=== PATIENT | female | born 1960 | race Caucasian/White ===

== ENCOUNTER 2017-06-28 17:52 | Inpatient (IN) | payer MEDICAID ==
--- NOTE | 2017-06-28 18:33 | EDPHY ---
H & P Time Seen by Provider: 06/28/17 17:59 HPI/ROS: CHIEF COMPLAINT: Right knee pain HISTORY OF PRESENT ILLNESS: Patient is a 56-year-old female who presents emergency department with right knee pain. Patient states that she is currently in a custodial because in 2013 she developed an infection in her right knee that went systemic. She required orthopedic drainage. Patient states that 2 weeks ago she fell landing on her right knee. She initially did not have any discomfort. However over the past few days she has had increased right knee pain and swelling. She denies fevers or chills. No nausea vomiting. No other complaints. REVIEW OF SYSTEMS: My complete review of systems is negative except as mentioned in the HPI. Past Medical/Surgical History: Includes aortic stenosis, CHF, hypertension, chronic low back pain, chronic knee pain, depression, narcotic dependency, JOAQUIN, diabetes, peripheral neuropathy , reported bacteremia, reported septic joint Past surgical history: Includes bypass and aortic valve replacement Social history: The patient is currently custodial resident Smoking Status: Current every day smoker Physical Exam: Vitals noted. Febrile. GENERAL: Well-appearing, in no acute distress, alert. HEENT: Eyes normal to inspection, normal pharynx, no signs of dehydration. NECK: No thyromegaly, no lymphadenopathy, supple. RESPIRATORY: Clear to auscultation bilaterally, no rales, rhonchi or wheezing. CVS: Regular rate and rhythm, no rubs, murmurs, or gallops. ABDOMEN: Soft, nontender, nondistended, no organomegaly. BACK: Normal to inspection, no CVA tenderness. SKIN: Normal color, no rash, warm, dry. No pallor. EXTREMITIES: No pedal edema, no calf tenderness, no Homans sign or cords. Patient has mild swelling of her right knee. There is no warmth. No streaking up her leg. No pain with passive range of motion. Mild patellar tenderness palpation. NEURO/PSYCH: Alert and oriented x3, normal mood and affect, normal motor sensory exam. Constitutional: Initial Vital Signs Temperature (C) 38.4 C H 06/28/17 17:58 Heart Rate 110 H 06/28/17 17:58 Respiratory Rate 16 06/28/17 17:58 Blood Pressure 99/76 L 06/28/17 17:58 O2 Sat (%) 92 06/28/17 17:58 O2 Delivery Mode Room Air Allergies/Adverse Reactions: adhesive tape Allergy (Unknown, Verified 01/03/16 04:51) Itching nafcillin Allergy (Verified 08/27/16 08:14) vancomycin Allergy (Verified 08/27/16 08:14) Home Medications: Medication Instructions Recorded Citalopram Hydrobromide 40 mg PO DAILY 07/07/12 [Citalopram HBr 40 MG] Metoprolol Tartrate [Lopressor 25 12.5 mg PO BID 07/07/12 mg (*)] busPIRone [Buspar (*)] 5 mg PO BID 07/07/12 Aspirin [Aspirin 325 mg (*)] 325 mg PO DAILY 02/27/14 Cyclobenzaprine [Flexeril 10 MG 10 mg PO TID 02/27/14 (*)] Pregabalin [Lyrica 75mg (*)] 75 mg PO TID 05/29/14 Ferrous Sulfate [Ferrous Sulf 325 325 mg PO BID #20 tab 08/15/14 MG (*)] Atorvastatin Calcium [Lipitor 10 10 mg PO DAILY 11/21/14 mg (*)] oxyCODONE CR [Oxycontin] 40 mg PO BID 03/01/15 oxyCODONE CR [Oxycontin] 80 mg PO BID 03/01/15 oxyCODONE IR [Oxycodone Ir (RX)] 30 mg PO 03/01/15 Temazepam 03/03/15 Amox Tr/Potassium Clavulanate 875 mg PO BID #14 tab 01/03/16 [Amox Tr-K Clv 875-125 mg] Clobetasol 0.05% [Temovate Topical 50 ml TP BID #1 btl 01/03/16 Solution] Medical Decision Making - Diagnostics Imaging Results: Imaging Impressions Knee X-Ray 06/28/17 18:35 Impression: Moderate to severe tricompartmental osteoarthritis of the right knee. Nothing acute radiographically. ED Course/Re-evaluation: In the emergency department I discussed possible etiologies with the patient. Answered all her questions. IV was placed. Laboratory studies were obtained. The IV patient's laboratory studies. CBC is pending. Lactic acid is elevated at 2.9. Creatinine is elevated 1.5. Patient's sodium is low 133. The patient consented to a knee aspiration. Please refer the procedure note. Patient tolerated the procedure well. White count is elevated 16,000. Lactic acid elevated at 2.9. The C-reactive protein is elevated at 22. Patient was noted to have 771 white cells in her knee aspiration. She had 96, 000 red cells. Crystals are pending. I do not have a culture result. I reviewed antibiotic recommendations for septic arthritis. The recommendation is Rocephin and vancomycin. Patient has an allergy to vancomycin. I subsequently spoke with Dr. Canales regarding admission and antibiotic choice. The patient will be given Rocephin 2 g IV per the recommendation and Dr. Canales will determine 2nd antibiotic coverage. On recheck the patient had intermittently had her IV fluid held. I discussed this with the nursing staff. She will be given 2 L of normal saline and then have her lactic acid repeated. I rechecked the patient on numerous occasions. She was stable during her stay. Differential Diagnosis: Differential includes but is not limited to contusion, fracture, sprain, bacteremia, sepsis, septic joint - Data Points Laboratory Results: Laboratory Results 06/28/17 19:35 06/28/17 18:15 06/28/17 06/28/17 06/28/17 19:35 19:00 18:15 WBC 16.62 10^3/uL H 10^3/uL (3.80-9.50) RBC 4.52 10^6/uL 10^6/uL (4.18-5.33) Hgb 13.5 g/dL g/dL (12.6-16.3) Hct 39.7 % % (38.0-47.0) MCV 87.8 fL fL (81.5-99.8) MCH 29.9 pg pg (27.9-34.1) MCHC 34.0 g/dL g/dL (32.4-36.7) RDW 13.2 % % (11.5-15.2) Plt Count 189 10^3/uL 10^3/uL (150-400) MPV 11.4 fL fL (8.7-11.7) Neut % (Auto) 77.1 % H % (39.3-74.2) Lymph % (Auto) 12.0 % L % (15.0-45.0) [place] % (Auto) 7.7 % % (4.5-13.0) Eos % (Auto) 2.3 % % (0.6-7.6) Baso % (Auto) 0.4 % % (0.3-1.7) Nucleat RBC Rel Count 0.0 % % (0.0-0.2) Absolute Neuts (auto) 12.81 10^3/uL H 10^3/uL (1.70-6.50) Absolute Lymphs (auto) 1.99 10^3/uL 10^3/uL (1.00-3.00) Absolute Monos (auto) 1.28 10^3/uL H 10^3/uL (0.30-0.80) Absolute Eos (auto) 0.39 10^3/uL 10^3/uL (0.03-0.40) Absolute Basos (auto) 0.06 10^3/uL 10^3/uL (0.02-0.10) Absolute Nucleated RBC 0.00 10^3/uL 10^3/uL (0-0.01) Immature Gran % 0.5 % % (0.0-1.1) Immature Gran # 0.09 10^3/uL 10^3/uL (0-0.10) ESR PT INR APTT VBG Lactic Acid Sodium Potassium Chloride Carbon Dioxide Anion Gap BUN Creatinine Estimated GFR Glucose Calcium Total Bilirubin C-Reactive Protein 22.8 mg/L H mg/L (<10.0) Synovial Source SYNOVIAL Synovial Color RED (CLS/PALE YL) Synovial Appearance CLOUDY H (CLEAR) Synovial WBC 771 /mm3 H /mm3 (0-150) Synovial RBC 97137 /mm3 H /mm3 (0-0) Synovial Crystals Pending 06/28/17 06/28/17 06/28/17 18:15 18:15 18:15 WBC RBC Hgb Hct 42.0 % % (38.0-47.0) MCV MCH MCHC RDW Plt Count MPV Neut % (Auto) Lymph % (Auto) [place] % (Auto) Eos % (Auto) Baso % (Auto) Nucleat RBC Rel Count Absolute Neuts (auto) Absolute Lymphs (auto) Absolute Monos (auto) Absolute Eos (auto) Absolute Basos (auto) Absolute Nucleated RBC Immature Gran % Immature Gran # ESR 13 MM/HR MM/HR (0-30) PT 14.2 SEC SEC (12.0-15.0) INR 1.11 (0.83-1.16) APTT 23.3 SEC SEC (23.0-38.0) VBG Lactic Acid Sodium 133 mEq/L L mEq/L (134-144) Potassium 3.6 mEq/L mEq/L (3.5-5.2) Chloride 95 mEq/L L mEq/L (97-110) Carbon Dioxide 24 mEq/l mEq/l (22-31) Anion Gap 14 mEq/L mEq/L (8-16) BUN 25 mg/dL H mg/dL (7-23) Creatinine 1.5 mg/dL H mg/dL (0.6-1.0) Estimated GFR 36 Glucose 77 mg/dL mg/dL (70-100) Calcium 10.0 mg/dL mg/dL (8.5-10.4) Total Bilirubin 0.7 mg/dL mg/dL (0.1-1.4) C-Reactive Protein Synovial Source Synovial Color Synovial Appearance Synovial WBC Synovial RBC Synovial Crystals 06/28/17 06/28/17 18:15 18:15 WBC REJ RBC Not Reported Hgb Not Reported Hct Not Reported MCV Not Reported MCH Not Reported MCHC Not Reported RDW Not Reported Plt Count Not Reported MPV Not Reported Neut % (Auto) Not Reported Lymph % (Auto) Not Reported [place] % (Auto) Not Reported Eos % (Auto) Not Reported Baso % (Auto) Not Reported Nucleat RBC Rel Count Not Reported Absolute Neuts (auto) Not Reported Absolute Lymphs (auto) Not Reported Absolute Monos (auto) Not Reported Absolute Eos (auto) Not Reported Absolute Basos (auto) Not Reported Absolute Nucleated RBC Not Reported Immature Gran % Not Reported Immature Gran # Not Reported ESR PT INR APTT VBG Lactic Acid 2.9 mmol/L H mmol/L (0.7-2.1) Sodium Potassium Chloride Carbon Dioxide Anion Gap BUN Creatinine Estimated GFR Glucose Calcium Total Bilirubin C-Reactive Protein Synovial Source Synovial Color Synovial Appearance Synovial WBC Synovial RBC Synovial Crystals Microbiology Results: MICROBIOLOGY 06/28/17 19:05 Synovial Fluid - Aspirate Gram Stain - Final 06/28/17 19:05 Synovial Fluid - Aspirate Anaerobic Culture - Preliminary Medications Given: Discontinued Medications Sodium Chloride (Ns) 1,000 mls @ 0 mls/hr IV ONCE ONE PRN Reason: Wide Open Stop: 06/28/17 18:36 Last Admin: 06/28/17 18:48 Dose: 1,000 mls Departure - Departure Disposition: [facility] In[facility] Acute Clinical Impression: Severe sepsis Knee pain, acute Qualifiers: Laterality: right Qualified Code(s): M25.561 - Pain in right knee Condition: Good Referrals: M,DOCTOR [Other] - As per Instructions
[2017-06-28] MEDS ORDERED: NS 1,000 ML IV ONE ×2 (18:35→19:40)
[2017-06-28 18:53] LABS: INR 1.11 (0.83-1.16); PROTIME(PATIENT) 14.2 SEC (12.0-15.0)
[2017-06-28 18:54] LABS: APTT 23.3 SEC (23.0-38.0)
[2017-06-28 19:08] LABS: ANION GAP 14 mEq/L (8-16); BILIRUBIN,TOTAL 0.7 mg/dL (0.1-1.4); CARBON DIOXIDE 24 mEq/l (22-31); CHLORIDE 95 mEq/L (97-110); CREATININE 1.5 mg/dL (0.6-1.0); GLOMERULAR FILTRATION RATE 36; GLUCOSE 77 mg/dL (70-100); POTASSIUM 3.6 mEq/L (3.5-5.2); SODIUM 133 mEq/L (134-144)
[2017-06-28 19:38] LABS: LACGHOST ORDER
[2017-06-28 19:48] LABS: % IMMATURE GRANULOCYTES 0.5 % (0.0-1.1); ABSOLUTE IMMATURE GRANULOCYTES 0.09 10^3/uL (0-0.10); HEMATOCRIT 39.7 % (38.0-47.0); HEMOGLOBIN 13.5 g/dL (12.6-16.3); MEAN CELL HEMOGLOBIN 29.9 pg (27.9-34.1); MEAN CELL VOLUME 87.8 fL (81.5-99.8); MEAN PLATELET VOLUME 11.4 fL (8.7-11.7); RED BLOOD CELL COUNT 4.52 10^6/uL (4.18-5.33); RED CELL DISTRIBUTION WIDTH 13.2 % (11.5-15.2)
[2017-06-28 20:01] LABS: WBC, SYNOVIAL FLUID 771 /mm3 (0-150)
[2017-06-28] MEDS ORDERED: cefTRIAXone 2 GM in D5W 50 ML IV ONE (20:27)
[2017-06-28] MEDS ORDERED: NS 2,600 ML IV ONE (20:30)
[2017-06-28] MEDS ORDERED: ONDANSETRON 4 MG/2 ML VIAL IVP PRN (20:35)
[2017-06-28] MEDS ORDERED: HYDROCODONE/APAP 5/325 TAB PO PRN (20:35)
[2017-06-28] MEDS ORDERED: ACETAMINOPHEN 325 MG TAB PO PRN (20:35)
[2017-06-28] MEDS ORDERED: ONDANSETRON DISINTEGRATING 4 MG TAB PO PRN (20:35)
[2017-06-28 20:43] LABS: CRYSTALS, SYNOVIAL FLUID NONE SEEN (NONE SEEN)
[2017-06-28 22:26] LABS: LACGHOST ORDER
[2017-06-29] MEDS: NS 1,000 ML IV SCH ×3 (00:06→20:29)
[2017-06-29] MEDS ORDERED: POLYETHYLENE GLYCOL 3350 17 GM PKT PO PRN (01:20)
--- NOTE | 2017-06-29 01:34 | PDGENHP ---
History and Physical - Chief Complaint R Knee pain - History of Present Illness 56 yo F w/ hx of diastolic HF, MSSA endocarditis s/p bioprosthetic AVR, septic arthritis, and pre-DM presents with acute onset R knee pain. Patient describes sudden onset R knee pain and swelling upon waking on the day of admission. She did fall on that knee about 1 month ago but denies further trauma since. She has a prior hx of septic arthritis to the same knee. Her pain is moderate 5/10 but she has full ROM. Ranging the knee is only mildly uncomfortable. She denies fevers, chills, confusion, shortness of breath, and chest pain. History Information - Allergies/Home Medication List Allergies/Adverse Reactions: adhesive tape Allergy (Unknown, Verified 01/03/16 04:51) Itching nafcillin Allergy (Verified 08/27/16 08:14) vancomycin Allergy (Verified 08/27/16 08:14) Home Medications: busPIRone [Buspar (*)] 5 mg PO TID 07/07/12 [Last Taken 06/28/17 16:00] Aspirin [Aspirin 325 mg (*)] 325 mg PO DAILY 02/27/14 [Last Taken 06/28/17] Cyclobenzaprine [Flexeril 10 MG (*)] 10 mg PO TID 02/27/14 [Last Taken 06/28/17 16:00] Atorvastatin Calcium [Lipitor 10 mg (*)] 10 mg PO HS 11/21/14 [Last Taken ] oxyCODONE CR [Oxycontin] 40 mg PO Q12 03/01/15 [Last Taken 06/28/17 08:00] oxyCODONE IR [Oxycodone Ir (RX)] 30 mg PO Q4 PRN 03/01/15 [Last Taken 06/28/17 15:04] Acetaminophen [Tylenol 325mg (*)] 650 mg PO Q8 PRN 06/28/17 [Last Taken Unknown] Citalopram Hydrobromide [Celexa] 40 mg PO DAILY 06/28/17 [Last Taken 06/28/17] Cyanocobalamin [Vitamin B12 (*)] 500 mcg PO DAILY 06/28/17 [Last Taken 06/28/17] Cyclobenzaprine [Flexeril 10 MG (*)] 10 mg PO DAILY PRN 06/28/17 [Last Taken 10/30] Loperamide HCl [Loperamide] 2 mg PO Q6 PRN 06/28/17 [Last Taken Unknown] Magnesium Hydroxide/Al Hydrox [Mylanta Liquid] 30 ml PO Q4 PRN 06/28/17 [Last Taken Unknown] Metoprolol Succinate Xr [Toprol Xl 25 mg (*)] 75 mg PO DAILY 06/28/17 [Last Taken 06/28/17] Omeprazole [Prilosec 20 mg] 20 mg PO DAILY 06/28/17 [Last Taken 06/28/17] Polyethylene Glycol 3350 [Miralax 17 gm (*)] 17 gm PO DAILY PRN 06/28/17 [Last Taken Unknown] Potassium Cl [Klor-Con 20 meq (*)] 20 meq PO DAILY 06/28/17 [Last Taken 06/28/17 ] Pregabalin [Lyrica] 200 mg PO BID 06/28/17 [Last Taken 06/28/17 08:00] Promethazine HCl [Phenergan 12.5mg tab] 12.5 - 25 mg PO Q4 PRN 06/28/17 [Last Taken 06/27/17] Sennosides [Senokot] 17.2 mg PO HS 06/28/17 [Last Taken 06/27/17] Tiotropium Inhaler [Spiriva Inhaler] 1 inh IH DAILY 06/28/17 [Last Taken ] Torsemide [Demadex] 30 mg PO BID@08,1230 06/28/17 [Last Taken 06/28/17 12:30] Trolamine Salicylate/Aloe Vera [Aspercreme 10% Cream] 1 mary TP DAILY PRN [Last Taken Unknown] guaiFENesin [Mucinex 600 MG (*)] 600 mg PO Q12 PRN 06/28/17 [Last Taken 06/27/17 ] hydrOXYzine HCL [hydrOXYzine HCL (RX)] 25 mg PO QID PRN 06/28/17 [Last Taken ] metFORMIN HCL [Metformin HCl] 500 mg PO BID 06/28/17 [Last Taken 06/28/17 16:30] I have personally reviewed and updated: family history, medical history - Past Medical History CHF, diabetes type 2 Additional medical history: Chronic pain. MSSA endocarditis. MSSA septic arthritis - Surgical History Additional surgical history: Bioprosthetic AVR - Family History Positive for: diabetes type II, CAD - Social History Smoking Status: Current every day smoker Drug Use: None Review of Systems ROS: 10pt was reviewed & negative except for what was stated in HPI & below Physical Exam Temp Pulse Resp BP Pulse Ox 37.2 C 87 17 123/91 H 99 06/28/17 22:28 06/28/17 22:28 06/28/17 22:28 06/28/17 22:28 06/28/17 22:28 O2 (L/minute) 3 Constitutional: no apparent distress, obese Eyes: PERRL, EOMI Ears, Nose, Mouth, Throat: moist mucous membranes, no oral mucosal ulcers Cardiovascular: regular rate and rhythym, systolic murmur (3/6 @ RUSB) Respiratory: no respiratory distress, clear to auscultation Gastrointestinal: normoactive bowel sounds, soft, non-tender abdomen Musculoskeletal: joint effusion (R knee, warm), pain with ROM (Mild pain with ROM) Neurologic: AAOx3, CN II-XII Intact Psychiatric: interacting appropriately, not anxious Lab Data & Imaging Review 06/28/17 19:35 06/28/17 18:15 WBC 16.62 10^3/uL (3.80-9.50) H 06/28/17 19:35 RBC 4.52 10^6/uL (4.18-5.33) 06/28/17 19:35 Hgb 13.5 g/dL (12.6-16.3) 06/28/17 19:35 Hct 39.7 % (38.0-47.0) 06/28/17 19:35 MCV 87.8 fL (81.5-99.8) 06/28/17 19:35 MCH 29.9 pg (27.9-34.1) 06/28/17 19:35 MCHC 34.0 g/dL (32.4-36.7) 06/28/17 19:35 RDW 13.2 % (11.5-15.2) 06/28/17 19:35 Plt Count 189 10^3/uL (150-400) 06/28/17 19:35 MPV 11.4 fL (8.7-11.7) 06/28/17 19:35 Neut % (Auto) 77.1 % (39.3-74.2) H 06/28/17 19:35 Lymph % (Auto) 12.0 % (15.0-45.0) L 06/28/17 19:35 [place] % (Auto) 7.7 % (4.5-13.0) 06/28/17 19:35 Eos % (Auto) 2.3 % (0.6-7.6) 06/28/17 19:35 Baso % (Auto) 0.4 % (0.3-1.7) 06/28/17 19:35 Nucleat RBC Rel Count 0.0 % (0.0-0.2) 06/28/17 19:35 Absolute Neuts (auto) 12.81 10^3/uL (1.70-6.50) H 06/28/17 19:35 Absolute Lymphs (auto) 1.99 10^3/uL (1.00-3.00) 06/28/17 19:35 Absolute Monos (auto) 1.28 10^3/uL (0.30-0.80) H 06/28/17 19:35 Absolute Eos (auto) 0.39 10^3/uL (0.03-0.40) 06/28/17 19:35 Absolute Basos (auto) 0.06 10^3/uL (0.02-0.10) 06/28/17 19:35 Absolute Nucleated RBC 0.00 10^3/uL (0-0.01) 06/28/17 19:35 Immature Gran % 0.5 % (0.0-1.1) 06/28/17 19:35 Immature Gran # 0.09 10^3/uL (0-0.10) 06/28/17 19:35 ESR 13 MM/HR (0-30) 06/28/17 18:15 PT 14.2 SEC (12.0-15.0) 06/28/17 18:15 INR 1.11 (0.83-1.16) 06/28/17 18:15 APTT 23.3 SEC (23.0-38.0) 06/28/17 18:15 VBG Lactic Acid 2.1 mmol/L (0.7-2.1) 06/29/17 00:15 Sodium 133 mEq/L (134-144) L 06/28/17 18:15 Potassium 3.6 mEq/L (3.5-5.2) 06/28/17 18:15 Chloride 95 mEq/L (97-110) L 06/28/17 18:15 Carbon Dioxide 24 mEq/l (22-31) 06/28/17 18:15 Anion Gap 14 mEq/L (8-16) 06/28/17 18:15 BUN 25 mg/dL (7-23) H 06/28/17 18:15 Creatinine 1.5 mg/dL (0.6-1.0) H 06/28/17 18:15 Estimated GFR 36 06/28/17 18:15 Glucose 77 mg/dL (70-100) 06/28/17 18:15 Calcium 10.0 mg/dL (8.5-10.4) 06/28/17 18:15 Total Bilirubin 0.7 mg/dL (0.1-1.4) 06/28/17 18:15 C-Reactive Protein 22.8 mg/L (<10.0) H 06/28/17 18:15 Synovial Source SYNOVIAL 06/28/17 19:00 Synovial Color RED (CLS/PALE YL) 06/28/17 19:00 Synovial Appearance CLOUDY (CLEAR) H 06/28/17 19:00 Synovial WBC 771 /mm3 (0-150) H 06/28/17 19:00 Synovial RBC 66600 /mm3 (0-0) H 06/28/17 19:00 Synovial Neutrophils 21 % (0-25) 06/28/17 19:00 Synovial Lymphocytes 69 % 06/28/17 19:00 Synov Monos/Macrophage 10 % 06/28/17 19:00 Imaging Review: Knee XR without acute abnormality Visualized and Interpreted Chest x-ray results: Yes Assessment & Plan Assessment: 56 yo F w/ hx of diastolic HF, MSSA endocarditis s/p bioprosthetic AVR, septic arthritis, and pre-DM presents with acute onset R knee pain and effusion. Plan: 1. R knee effusion - Unclear if septic arthritis; certainly a possibility noting hx of MSSA septic arthritis and endocarditis in 2013, as well as elevated WBC and lactate. However, fluid analysis with only 700, lymphocytic predominant WBCs and negative GS. Patient has full ROM with only mild/moderate discomfort. Other considerations include hemarthrosis (noting >90k RBCs) and crystal induced arthropathy, although preliminary crystal analysis is negative per conversation with lab (this can often be seen with pseudogout). - Will treat with Cefazolin 2g IV q8h noting prior hx of MSSA - S/p initial decompression via arthrocentesis, will consult orthopedics in the morning to evaluate need for ongoing decompression (needle vs. surgical) - Await final pathologist review of synovial fluid - Blood and synovial fluid cultures pending - ID consult placed 2. SIRS - 2/4 with WBC of 16 and mild tachycardia on admission; has been afebrile throughout. This could represent sepsis if truly septic joint(see discussion above), or a reaction to pain and inflammation of swollen joint. - S/p fluid resuscitation - Antibiotics as above, blood and synovial fluid cultures pending - Will order TTE noting prior hx of MSSA endocarditis and AVR 3. Chronic diastolic HF - On Toprol XL and torsemide as an outpatient. Will hold diuretic in setting of possible sepsis and elevated lactate on admission. 4. BRITTANY - Mild, suspect pre-renal azotemia in setting of above. IVF and recheck BMP. 5. Hx of bioprosthetic AVR - In the setting of prior endocarditis. Acute management as above, checking TTE. 6. Chronic pain - On Oxycontin 40 mg BID and oxycodone 30 mg q6h PRN as an outpatient; will continue 7. Pre-DM - On metformin for this, will hold noting acute illness and mild BRITTANY. Diet - Regular Code - Full Ppx - SCDs noting possibility of hemarthrosis Dispo - Admit to inpatient noting need for IV abx and further work-up, management
[2017-06-29] MEDS: HYDROmorphONE/DILAUDID 1 MG/ML SYR IVP PRN ×2 (03:19→23:14)
[2017-06-29 05:10] LABS: % IMMATURE GRANULYOCYTES 0.3 % (0.0-1.1); ABSOLUTE IMMATURE GRANULOCYTES 0.03 10^3/uL (0.00-0.10); ADD DIFF? NO; ADD MORPH? NO; ADD SCAN? NO; ATYPICAL LYMPHOCYTE FLAG 30 (0-99); FRAGMENT RBC FLAG 0 (0-99); HEMATOCRIT 34.4 % (38.0-47.0); HEMOGLOBIN 11.7 g/dL (12.6-16.3); LEFT SHIFT FLG 0 (0-99); LIPEMIA HEMOLYSIS FLAG 90 (0-99); MEAN CELL HEMOGLOBIN 29.8 pg (27.9-34.1); MEAN CELL VOLUME 87.8 fL (81.5-99.8); MEAN PLATELET VOLUME 10.6 fL (8.7-11.7); PLATELET CLUMPS FLAG 20 (0-99); PLATELET COUNT 148 10^3/uL (150-400); RED BLOOD CELL COUNT 3.92 10^6/uL (4.18-5.33); RED CELL DISTRIBUTION WIDTH 13.2 % (11.5-15.2)
[2017-06-29] MEDS ORDERED: ceFAZolin 2 GM/DEXTROSE 100 ML IV SCH (06:00)
[2017-06-29 06:09] LABS: ANION GAP 10 mEq/L (8-16); CALCIUM 8.4 mg/dL (8.5-10.4); CARBON DIOXIDE 23 mEq/l (22-31); CHLORIDE 103 mEq/L (97-110); CREATININE 1.4 mg/dL (0.6-1.0); GLOMERULAR FILTRATION RATE 39; GLUCOSE 100 mg/dL (70-100); POTASSIUM 3.2 mEq/L (3.5-5.2); SODIUM 136 mEq/L (134-144)
[2017-06-29] MEDS ORDERED: TORSEMIDE 20 MG TAB PO SCH (08:00)
[2017-06-29] MEDS ORDERED: ENOXAPARIN 40 MG/0.4 ML SYR SC SCH (09:00)
[2017-06-29] MEDS ORDERED: metFORMIN HCL 500 MG TAB PO SCH (09:00)
[2017-06-29] MEDS: CITALOPRAM 20 MG TAB PO SCH (09:15)
[2017-06-29] MEDS: PREGABALIN 100 MG CAP PO SCH ×2 (09:15→21:35)
[2017-06-29] MEDS: PANTOPRAZOLE SODIUM 40 MG TAB PO SCH (09:17)
[2017-06-29] MEDS: busPIRone 5 MG TAB PO SCH ×3 (09:17→21:36)
[2017-06-29] MEDS: METOPROLOL SUCCINATE XR 25 MG TAB PO SCH (09:34)
[2017-06-29] MEDS: TIOTROPIUM INHALER 18 MCG/DOSE 5 DOSE/MDI IH SCH ×2 (09:40→10:42)
[2017-06-29] MEDS ORDERED: NS 250 ML IV ONE (09:50)
--- NOTE | 2017-06-29 10:30 | HOSPPROG ---
Hospitalist Progress Note Assessment/Plan: Patient is a 56-year-old female with history of diastolic congestive heart failure, MSSA endocarditis status post bioprosthetic aortic valve replacement, septic arthritis and pre diabetes. She presented to the emergency room with acute onset of right knee pain as well as an effusion. Today is my 1st encounter with the patient. Reviewed her care with the admitting physician. Also, reviewed her care with Dr Guadalupe and Dr Serrano. * right knee effusion/has right knee arthritis Reviewed her fluid study It shows a negative Gram stain with minimally elevated white blood cell count , no crystals are noted Orthopedics to see today Cultures are pending * SIRS She has an elevated white blood cell count and some tachycardia *Hypokalemia add oral protocol * hypotension Getting a fluid bolus this morning * history of MSSA endocarditis An echocardiogram to be done She has a history of aortic valve replacement due to this (porcine valve) * acute kidney injury Her creatinine has varied over the last 2 years Will avoid any nephrotoxins medications and follow, it has improved with hydration * chronic diastolic congestive heart failure On beta-stiven as well as a diuretic Diuretic on hold due to the hypotension * chronic pain on continuous opioids Home medications resumed * pre diabetes Metformin on hold for now *Plan: I suspect she can be dc tomorrow if ok with ID Subjective: Aleyda has c/o right knee pain. Says it is tender. Objective: Vital Signs Temp Pulse Resp BP Pulse Ox 36.6 C 79 20 96/67 L 99 06/29/17 08:00 06/29/17 09:28 06/29/17 08:00 06/29/17 09:28 06/29/17 09:28 Laboratory Results 06/29/17 04:57 06/29/17 04:57 06/28/17 06/29/17 06/30/17 05:59 05:59 05:59 Intake Total 3421 Balance 3421 PT 14.2 SEC (12.0-15.0) 06/28/17 18:15 INR 1.11 (0.83-1.16) 06/28/17 18:15 - Physical Exam Constitutional: no apparent distress, appears nourished, chronically ill appearing, obese, No not in pain Eyes: PERRL Ears, Nose, Mouth, Throat: hearing normal Cardiovascular: regular rate and rhythym, systolic murmur Respiratory: no respiratory distress Gastrointestinal: normoactive bowel sounds Skin: other (right knee tender to the touch/ has an effusion) Neurologic: AAOx3 Psychiatric: interacting appropriately ICD10 Worksheet Patient Problems: Problems Problem Status Onset Knee pain, acute Acute Severe sepsis Acute Annular abscess of aortic root Acute Diabetes Acute Endocarditis Acute Hyperlipemia Acute Weakness Acute
--- NOTE | 2017-06-29 11:20 | PCMIDPN ---
Assessment/Plan: Assessment: Acute right knee pain and swelling. Fluid drawn from right knee does not reflect inflammation consistent with infection. Cultures are pending. Will discontinue antibiotics at this point and observe. Plan: 1. Discontinue antibiotics. 2. Observe for culture positivity. 06/29/17 18:05 Subjective: Patient relates acute onset right knee pain consistent with prior episode of septic arthritis. She reports no fevers or chills. No redness or warmth to the area. Objective: Cefazolin # 1 Vital Signs Temp Pulse Resp BP Pulse Ox 36.6 C 79 20 96/67 L 99 06/29/17 08:00 06/29/17 09:28 06/29/17 08:00 06/29/17 09:28 06/29/17 09:28 Laboratory Results 06/29/17 04:57 06/29/17 04:57 06/28/17 06/29/17 06/30/17 05:59 05:59 05:59 Intake Total 3421 Balance 3421 ESR 13 MM/HR (0-30) 06/28/17 18:15 C-Reactive Protein 22.8 mg/L (<10.0) H 06/28/17 18:15 - Physical Exam General Appearance: WD/WN, alert, no apparent distress, non-toxic Respiratory: lungs clear, normal breath sounds Cardiac/Chest: regular rate, rhythm, No tachycardia Extremities: non-tender, normal inspection, No inflammation, No swelling, No erythema Skin: normal color, warm/dry, No rash Neuro/Psych: alert, normal mood/affect, oriented x 3 ICD10 Worksheet Patient Problems: Problems Problem Status Onset Knee pain, acute Acute Severe sepsis Acute Annular abscess of aortic root Acute Diabetes Acute Endocarditis Acute Hyperlipemia Acute Weakness Acute
--- NOTE | 2017-06-29 11:20 | ECHO ---
[id number] + + [address] : : [place] [address] : : [phone] + + Adult Echocardiographic Report + -----+ :Name: JIA ROJAS Date: 06/29/2017 08:49 AM : : Hospital Admission Number: [id number] Location : 395: :: 1960 Gender: Female Height: 72 in : :Age: 56 yrs Race: WH Weight: 305 lb : :Reason For Study: murmur and swollen rt knee; r/o vegetation : : BSA: 2.5 meters2 : :History: AVR times two; AVR vegetation 2014 : + -----+ MMode/2D Measurements \T\ Calculations IVSd: 1.5 cm RVDd: 3.6 cm FS: 29.4 % Ao root diam: 3.6 cm LVPWd: 1.2 cm LVIDd: 4.5 cm EDV(Teich): 91.5 ml LVIDs: 3.2 cm ESV(Teich): 39.9 ml EF(Teich): 56.4 % Normal Measurement Values: + + :LVIDd (3.5-5.7cm) IVSd (0.6-1.1cm) LVPWd (0.6-1.1cm) Aortic Root (2.0-3.7cm)Left Atrium (1.5-4.0cm): :LV Vol(d) (76-115ml) LV Vol(s) (29-48ml) Ejec Fraction (50-65%)PV Hang (0.6- 1.2m/s) TV Hang (0.4-1.0m/s) : :MV E Hang (0.8-1.0m/s)MV A Hang (0.3-1.0m/s)LVOT Hang (0.7-1.2m/s) Asc Ao Hang ( 0.9-1.8m/s) : + + Doppler Measurements \T\ Calculations MV E max hang: MV V2 mean: Ao V2 max: LV V1 max: 97.7 cm/sec 73.0 cm/sec 198.9 cm/sec 88.3 cm/sec MV A max hang: MV mean PG: Ao max PG: LV V1 max P.5 cm/sec 2.4 mmHg 15.8 mmHg 3.1 mmHg MV E/A: 1.3 MV V2 VTI: 26.8 cm Ao mean PG: LV V1 mean PG: MV dec time: 11.5 mmHg 1.6 mmHg 0.18 sec Ao V2 mean: LV V1 mean: 165.2 cm/sec 58.8 cm/sec Ao V2 VTI: 46.8 cm LV V1 VTI: 18.2 cm PA V2 max: TR max hang: 92.3 cm/sec 248.2 cm/sec PA max P.4 mmHgTR max P.6 mmHg RAP systole: 5.0 mmHg RVSP(TR): 29.6 mmHg Left Ventricle The left ventricle is normal in size and function. There is mild to moderate concentric left ventricular hypertrophy. Ejection Fraction = 55-60%. Regional wall motion abnormalities cannot be excluded due to limited visualization. Right Ventricle The right ventricle is normal in size and function. Atria The left atrial size is normal. Right atrial size is normal. Mitral Valve The mitral valve is not well visualized. A vegetation on the mitral valve cannot be excluded. There is no mitral valve stenosis. There is mild mitral regurgitation. Tricuspid Valve The tricuspid valve is not well visualized. A tricuspid valve vegetation cannot be excluded. There is no tricuspid stenosis. There is mild tricuspid regurgitation. Right ventricular systolic pressure is 30mmHg. Aortic Valve No obvious vegetations on bioprosthetic aortic valve leaflets. AVR ring appears thickened but no obvious vegetation noted. There is no aortic insufficiency. There is a bioprosthetic aortic valve. The gradient is normal for this prosthetic aortic valve. Pulmonic Valve The pulmonic valve is not well visualized. Great Vessels The aortic root is normal size. Pericardium/Pleural There is no pericardial effusion. Conclusion A two-dimensional transthoracic echocardiogram with M-mode and Doppler was performed. Technically difficult echocardiogram due to patient size. Cannot rule out vegetation based on images from this exam. There is no evidence of a mass or vegetation. This does not rule out endocarditis. The left ventricle is normal in size and function. There is mild to moderate concentric left ventricular hypertrophy. Ejection Fraction = 55-60%. There is mild mitral regurgitation. There is mild tricuspid regurgitation. Right ventricular systolic pressure is 30mmHg. There is a bioprosthetic aortic valve. The gradient is normal for this prosthetic aortic valve. No obvious vegetations on bioprosthetic aortic valve leaflets. AVR ring appears thickened but no obvious vegetation noted. Final Reading Physician: Yolette Fernandez signed on 06/29/2017 11:18 AM Ordering Physician: Delmar Rodríguez Performed By: Matilde Hoyos
[2017-06-29] MEDS: CYANO/VITAMIN B12 1000 MCG TAB PO SCH (11:38)
--- NOTE | 2017-06-29 14:08 | WOCRNPDOC ---
WOCRN Advanced Assessment Note - Skin Integrity Problem, Advanced Assess Right Fourth Toe Dressing Type: Band Aid Wound Bed Color: Clifford Wound Bed Constitution: Granulation Tissue Wound Edges: Epithelizing Site Measurement - Head-to-Toe Length X Width X Depth (cm): 0.4x0.4x0.1 Skin Integrity Problem Comment: Small open area mostly scabbed with extensive callous. Patient would like skin prep to area. Please cover with band aid. Right Lateral Pannus Dressing Type: Allevyn Life Wound Bed Constitution: Healed Skin Integrity Problem Comment: No open wound. Areas of scar with minimal moisture related dermatitis. No concerns. Left Pedal Foot Diabetic Ulcer Dressing Type: Hydrofera Blue, Non-Bordered Foam Dressing Description: Clean/Dry, Intact Exudate Amount: None Integumentary Issue Intervention: Dressing Removed Aby Wound Tissue: Macerated (minimal from 4-6 oclock and only on wound edges), Xerotic, Calloused Wound Bed Color: Clifford (pale) Wound Bed Constitution: Granulation Tissue Wound Edges: Not Attached, Thick Site Measurement - Head-to-Toe Length X Width X Depth (cm): 1.3x1.8x0.3 Extremity Temperature: Warm Skin Integrity Problem Comment: Patient with charcot foot ulcer. No sign of infection. Is a pateint of wound healing center. Will continue with plan of care. Discussed plan with patient and RUDDY Romero. Hydrofera blue in wound bed had changed to white and was ready to be changed. Supplies given to RUDDY Romero. Wound care will round in one week on this wound.
--- NOTE | 2017-06-29 14:35 | GCON ---
[f rep st] CONSULTATION INPATIENT CONSULTATION. DATE OF CONSULTATION: 06/29/2017 ADMIT DIAGNOSIS: Right knee pain. DISCHARGE DIAGNOSIS: Right knee pain. PROCEDURE: None. HISTORY OF PRESENT ILLNESS: The patient is a 56-year-old woman with a previous history of right JOSÉ MIGUEL A septic arthritis to her right knee in 2013. She presented to the emergency room last night with a 24 hour history of increasing subjective redness, swelling and pain to her knee. She has a remote history of trauma to the knee after falling 3 weeks ago. She has a recurrent history of pain and sw elling to the knee. She was concerned that her knee may be infected. She was admitted to the [facility] talist service after aspiration of her knee in the emergency department and started on IV antibiotic s. She states the pain is moderate with 7/10 pain. She is able to bend the knee subjectively and s he denies any fevers, chills, or recent illness. PAST MEDICAL HISTORY: Congestive heart failure, type 2 diabetes, chronic pain, MSSA endocarditis an d septic arthritis as above. PAST SURGICAL HISTORY: Prosthetic aortic valve replacement, right knee irrigation and debridement. MEDICATIONS: Numerous, see chart. ALLERGIES: Adhesive tape, nafcillin and vancomycin. SOCIAL HISTORY: She smokes every day. Denies any drug use. REVIEW OF SYSTEMS: Negative for current chest pain, shortness of breath, belly pain, back pain, num bness, tingling, or other joint-related complaints. OBJECTIVE: GENERAL: This is a healthy heavyset woman in no acute distress. EXTREMITIES: Examinat ion of her right lower extremity reveals well-healed arthroscopic portal sites. She has a mild effu sona. She has neutral limb alignment. Active extension fully and flexion to 90 degrees actively. She has 1+ laxity with varus and valgus stress with mild associated discomfort. She does have sligh t increased warmth to the right knee. There is no lymphangitis or streaking. She has no calf swell ing or tenderness. VITAL SIGNS: She is afebrile. Her vital signs are otherwise unremarkable. She has had aspiration of her knee which demonstrates 700 white blood cells, primarily traumatic tap with 90,000 red blood cells, no organisms seen and 60% lymphocytes. X-rays demonstrate tricompartmental arthritis which is chronic. IMPRESSION: Right knee arthritis. TREATMENT PLAN: I feel that this is a reactive effusion or hemarthrosis. It is not related to a se ptic arthritis. Currently I have recommended cessation of her IV antibiotics. I have spoken with Ahsan Serrano from Infectious Disease. She is weightbearing, range of motion as tolerated, and may fol low up with her primary care physician. /[id number]/MODL
--- NOTE | 2017-06-29 14:50 | PDIAF ---
- Diagnosis Diagnosis: right knee arthritis Code Status: Full Code - Medication Management Discharge Medications: Medications to Continue on Transfer busPIRone [Buspar (*)] 5 mg PO TID 07/07/12 [Last Taken 06/28/17 16:00] Aspirin [Aspirin 325 mg (*)] 325 mg PO DAILY 02/27/14 [Last Taken 06/28/17] Cyclobenzaprine [Flexeril 10 MG (*)] 10 mg PO TID 02/27/14 [Last Taken 06/28/17 16:00] Atorvastatin Calcium [Lipitor 10 mg (*)] 10 mg PO HS 11/21/14 [Last Taken ] oxyCODONE CR [Oxycontin] 40 mg PO Q12 03/01/15 [Last Taken 06/28/17 08:00] oxyCODONE IR [Oxycodone Ir (RX)] 30 mg PO Q4 PRN 03/01/15 [Last Taken 06/28/17 15:04] Acetaminophen [Tylenol 325mg (*)] 650 mg PO Q8 PRN 06/28/17 [Last Taken Unknown] Citalopram Hydrobromide [Celexa] 40 mg PO DAILY 06/28/17 [Last Taken 06/28/17] Cyanocobalamin [Vitamin B12 (*)] 500 mcg PO DAILY 06/28/17 [Last Taken 06/28/17] Cyclobenzaprine [Flexeril 10 MG (*)] 10 mg PO DAILY PRN 06/28/17 [Last Taken 10/30] Loperamide HCl [Loperamide] 2 mg PO Q6 PRN 06/28/17 [Last Taken Unknown] Magnesium Hydroxide/Al Hydrox [Mylanta Liquid] 30 ml PO Q4 PRN 06/28/17 [Last Taken Unknown] Metoprolol Succinate Xr [Toprol Xl 25 mg (*)] 75 mg PO DAILY 06/28/17 [Last Taken 06/28/17] Omeprazole [Prilosec 20 mg] 20 mg PO DAILY 06/28/17 [Last Taken 06/28/17] Polyethylene Glycol 3350 [Miralax 17 gm (*)] 17 gm PO DAILY PRN 06/28/17 [Last Taken Unknown] Potassium Cl [Klor-Con 20 meq (*)] 20 meq PO DAILY 06/28/17 [Last Taken 06/28/17 ] Pregabalin [Lyrica] 200 mg PO BID 06/28/17 [Last Taken 06/28/17 08:00] Promethazine HCl [Phenergan 12.5mg tab] 12.5 - 25 mg PO Q4 PRN 06/28/17 [Last Taken 06/27/17] Sennosides [Senokot] 17.2 mg PO HS 06/28/17 [Last Taken 06/27/17] Tiotropium Inhaler [Spiriva Inhaler] 1 inh IH DAILY 06/28/17 [Last Taken ] Torsemide [Demadex] 30 mg PO BID@08,1230 06/28/17 [Last Taken 06/28/17 12:30] Trolamine Salicylate/Aloe Vera [Aspercreme 10% Cream] 1 mary TP DAILY PRN [Last Taken Unknown] guaiFENesin [Mucinex 600 MG (*)] 600 mg PO Q12 PRN 06/28/17 [Last Taken 06/27/17 ] hydrOXYzine HCL [hydrOXYzine HCL (RX)] 25 mg PO QID PRN 06/28/17 [Last Taken ] metFORMIN HCL [Metformin HCl] 500 mg PO BID 06/28/17 [Last Taken 06/28/17 16:30] Discharge Medications: Refer to the Discharge Home Medication list for PRN reason. - Orders Activity/Weight Bearing Restrictions: wbat. rom as sandy - Follow Up Care Current Providers and Referrals: M,DOCTOR [Other] - As per Instructions
[2017-06-29] MEDS ORDERED: PROTOCOL POTASSIUM 1 DOSE MISC PRN (15:12)
[2017-06-29] MEDS ORDERED: POTASSIUM CL 10 MEQ TAB PO ONE ×2 (15:29→23:58)
[2017-06-29] MEDS: CYCLOBENZAPRINE 10 MG TAB PO SCH ×2 (15:50→21:34)
[2017-06-29 18:47] LABS: POTASSIUM 3.7 mEq/L (3.5-5.2)
[2017-06-29] MEDS ORDERED: ATORVASTATIN CALCIUM 10 MG TAB PO SCH (21:00)
[2017-06-29] MEDS ORDERED: SENNOSIDES 1 TAB PO SCH (21:00)
[2017-06-30] MEDS ORDERED: NS 1,000 ML IV SCH (02:15)
[2017-06-30 05:24] LABS: POTASSIUM 3.8 mEq/L (3.5-5.2)
[2017-06-30] MEDS ORDERED: POTASSIUM CL 10 MEQ TAB PO ONE (07:32)
[2017-06-30] MEDS: busPIRone 5 MG TAB PO SCH (07:46)
[2017-06-30] MEDS: CYCLOBENZAPRINE 10 MG TAB PO SCH (07:47)
[2017-06-30] MEDS: PANTOPRAZOLE SODIUM 40 MG TAB PO SCH (07:47)
[2017-06-30] MEDS: CITALOPRAM 20 MG TAB PO SCH (07:47)
[2017-06-30] MEDS: PREGABALIN 100 MG CAP PO SCH (07:48)
[2017-06-30] MEDS: CYANO/VITAMIN B12 1000 MCG TAB PO SCH (07:49)
[2017-06-30] MEDS: METOPROLOL SUCCINATE XR 25 MG TAB PO SCH (08:11)
[2017-06-30 08:16] VITALS: BP 104/65; PULSE 80; TEMP 98.2
[2017-06-30] MEDS ORDERED: ASPIRIN 325 MG TAB PO SCH (09:00)
--- NOTE | 2017-06-30 09:51 | PDIAF ---
- Diagnosis Diagnosis: right knee arthritis Code Status: Full Code - Medication Management Discharge Medications: Medications to Continue on Transfer busPIRone [Buspar (*)] 5 mg PO TID 07/07/12 [Last Taken 06/28/17 16:00] Aspirin [Aspirin 325 mg (*)] 325 mg PO DAILY 02/27/14 [Last Taken 06/28/17] Cyclobenzaprine [Flexeril 10 MG (*)] 10 mg PO TID 02/27/14 [Last Taken 06/28/17 16:00] Atorvastatin Calcium [Lipitor 10 mg (*)] 10 mg PO HS 11/21/14 [Last Taken ] oxyCODONE CR [Oxycontin] 40 mg PO Q12 03/01/15 [Last Taken 06/28/17 08:00] oxyCODONE IR [Oxycodone Ir (*)] 30 mg PO Q4 PRN 03/01/15 [Last Taken 06/28/17 15 :04] Citalopram Hydrobromide [Celexa] 40 mg PO DAILY 06/28/17 [Last Taken 06/28/17] Cyanocobalamin [Vitamin B12 (*)] 500 mcg PO DAILY 06/28/17 [Last Taken 06/28/17] Cyclobenzaprine [Flexeril 10 MG (*)] 10 mg PO DAILY PRN 06/28/17 [Last Taken 10/30] Loperamide HCl [Loperamide] 2 mg PO Q6 PRN 06/28/17 [Last Taken Unknown] Magnesium Hydroxide/Al Hydrox [Mylanta Liquid] 30 ml PO Q4 PRN 06/28/17 [Last Taken Unknown] Metoprolol Succinate Xr [Toprol Xl 25 mg (*)] 75 mg PO DAILY 06/28/17 [Last Taken 06/28/17] Omeprazole [Prilosec 20 mg] 20 mg PO DAILY 06/28/17 [Last Taken 06/28/17] Polyethylene Glycol 3350 [Miralax 17 gm (*)] 17 gm PO DAILY PRN 06/28/17 [Last Taken Unknown] Potassium Cl [Klor-Con 20 meq (*)] 20 meq PO DAILY 06/28/17 [Last Taken 06/28/17 ] Pregabalin [LYRICA] 200 mg PO BID 06/28/17 [Last Taken 06/28/17 08:00] Promethazine HCl [Phenergan 12.5mg tab] 12.5 - 25 mg PO Q4 PRN 06/28/17 [Last Taken 06/27/17] Sennosides [Senokot] 17.2 mg PO HS 06/28/17 [Last Taken 06/27/17] Tiotropium Inhaler [Spiriva Inhaler (RX)] 1 inh IH DAILY 06/28/17 [Last Taken ] Torsemide [Demadex] 30 mg PO BID@08,1230 06/28/17 [Last Taken 06/28/17 12:30] Trolamine Salicylate/Aloe Vera [Aspercreme 10% Cream] 1 mary TP DAILY PRN [Last Taken Unknown] guaiFENesin [Mucinex 600 MG (*)] 600 mg PO Q12 PRN 06/28/17 [Last Taken 06/27/17 ] hydrOXYzine HCL [hydrOXYzine HCL (RX)] 25 mg PO QID PRN 06/28/17 [Last Taken ] metFORMIN HCL [Metformin HCl] 500 mg PO BID 06/28/17 [Last Taken 06/28/17 16:30] Acetaminophen [Tylenol 325mg (*)] 650 mg PO Q4HRS PRN #0 tab 06/30/17 [Last Taken Unknown] Discharge Medications: Refer to the Discharge Home Medication list for PRN reason. PICC Care - Routine: N/A - Orders Services needed: Registered Nurse, Physical Therapy, Occupational Therapy Diet Recommendation: no restrictions on diet Activity/Weight Bearing Restrictions: wbat. rom as sandy - Follow Up Care Current Providers and Referrals: M,DOCTOR [Other] - As per Instructions Mukesh Serrano MD [Medical Doctor] - 07/06/17 3:00 pm
[2017-06-30] MEDS: TIOTROPIUM INHALER 18 MCG/DOSE 5 DOSE/MDI IH SCH (10:05)
[2017-06-30 10:17] VITALS: RESP 20; O2SAT 87
--- NOTE | 2017-06-30 13:38 | PCMIDPN ---
Assessment/Plan: Assessment/Plan: * Right knee arthropathy: Cell count not suggestive of septic arthritis although prominent number red blood cells may be consistent with hematoma after a fall. Synovial fluid culture no growth to date. Patient with intermittent low-grade temperature which is of unclear etiology although potentially related to knee hematoma. Crystalline arthropathy also of consideration although no crystal seen on synovial fluid analysis. She does have prosthetic heart valve which will need to be kept in mind and blood cultures have been obtained which are currently showing no growth. Only other complaint is nausea without abdominal pain. If fever persists without identified cause, would consider CT scan of the abdomen and pelvis as additional mode of evaluation in the future. Will continue observation off antibiotics. Think she can be followed up in our office as an outpatient given clinical appearance. Have scheduled her to see Dr. Serrano next week. 06/30/17 13:36 06/30/17 15:06 Subjective: Patient with persistent knee pain. Notes low-grade temperature for approximately 1 week without rigors. Only other associated symptom is nausea without vomiting, diarrhea or abdominal pain. Objective: Vital Signs Temp Pulse Resp BP Pulse Ox 36.8 C 80 20 104/65 87 L 06/30/17 08:00 06/30/17 10:05 06/30/17 10:05 06/30/17 08:00 06/30/17 10:05 Laboratory Results 06/29/17 04:57 06/30/17 04:56 06/29/17 06/30/17 07/01/17 05:59 05:59 05:59 Intake Total 3421 1914 Balance 3421 1914 ESR 13 MM/HR (0-30) 06/28/17 18:15 C-Reactive Protein 22.8 mg/L (<10.0) H 06/28/17 18:15 Synovial fluid culture pending with negative Gram stain Blood cultures x2 no growth to date Tm 38.1 - Physical Exam General Appearance: alert, no apparent distress EENT: pharynx normal, No thrush, No conjunctival petechiae Respiratory: lungs clear, No respiratory distress Cardiac/Chest: regular rate, rhythm, systolic murmur (2/6 right upper sternal border) Extremities: inflammation (Right knee with warmth and tenderness; no overlying erythema or ecchymosis; pain with range of motion present) Abdomen: non-tender, No distended Skin: No embolic lesions ICD10 Worksheet Patient Problems: Problems Problem Status Onset Annular abscess of aortic root Acute Diabetes Acute Endocarditis Acute Hyperlipemia Acute Knee pain, acute Acute Severe sepsis Acute Weakness Acute
--- NOTE | 2017-06-30 16:38 | GDS ---
[f rep st] DISCHARGE SUMMARY DISCHARGE DIAGNOSES: 1. Right knee effusion. 2. Systemic inflammatory response syndrome. 3. Hypokalemia. 4. Hypotension. 5. History of methicillin-sensitive Staphylococcus aureus endocarditis. 6. Acute kidney injury. 7. Chronic diastolic congestive heart failure. 8. Chronic pain, on continuous opioids. 9. Prediabetes. CONSULTATIONS: 1. Infectious Disease. 2. Dr. Guadalupe of Orthopedics. STUDIES AND PROCEDURES DONE: 1. Echocardiogram. 2. Knee x-ray. PHYSICAL EXAMINATION: GENERAL: The patient is alert. VITAL SIGNS: Afebrile at 36.8, pulse is 80, respiratory rate 16, blood pressure is 104/65. She is saturating 95% on 3 L. I have seen and evaluated the patient on the day of discharge. HOSPITAL COURSE: 1. Patient is a 56-year-old female, who presented to the emergency room with complaints of right kn ee pain. She was evaluated and diagnosed with right knee effusion, as well as right knee arthritis. During this hospitalization, she received a consultation from Orthopedics. Cultures are pending a t the time of disposition. 2. SIRS. This has resolved. 3. Hypokalemia. She received replacement. 4. Hypotension. This is stable. 5. History of MSSA endocarditis. I have reviewed this with Dr. Araiza of Infectious Disease. He favio l follow with her in the outpatient setting. 6. Acute kidney injury. This is stable. 7. Chronic diastolic congestive heart failure. This is stable. 8. Chronic pain, on continuous opioids. Home medications have been resumed. DISPOSITION: The patient will be discharged to return to [facility] where she normally resides. I have reviewed the patient's care with the rn field case manager, as well as Infectious Disease. They are both in agreement with this disposition plan. DISCHARGE MEDICATIONS: Please refer to EMR form. I have not adjusted the patient's previously pres cribed home medications to the best of my knowledge. FOLLOWUP: Will be with the outpatient setting with Dr. Serrano on 07/06/2017 at 3 p.m., as well as h er primary care physician. She will also resume outpatient wound care. I have spent greater than 35 minutes in the care, coordination, and management of this patient's dis position. /[id number]/MODL
== END 2017-06-30 12:54 | DRG 565 ==
LOC: EDUNIT# → F3E 22:11
PROVIDERS: ADMIT Hospitalist; ATTEND Hospitalist
DX: M25.461 Effusion, right knee (principal); R65.10 Systemic inflammatory response syndrome (SIRS) of non-infectious origin without acute organ dysfunction; N17.9 Acute kidney failure, unspecified; I11.0 Hypertensive heart disease with heart failure; I50.32 Chronic diastolic (congestive) heart failure; M17.11 Unilateral primary osteoarthritis, right knee; E87.6 Hypokalemia; G89.29 Other chronic pain; R73.03 Prediabetes; G47.33 Obstructive sleep apnea (adult) (pediatric); Z95.1 Presence of aortocoronary bypass graft; Z95.4 Presence of other heart-valve replacement; Z72.0 Tobacco use; Z86.19 Personal history of other infectious and parasitic diseases
CPT/HCPCS: 97166-GO; J0690; J0696; J1170